=== PATIENT | female | born 1940 | race Caucasian/White ===

== ENCOUNTER 2019-04-17 15:04 | Emergency (ER) | payer MEDICARE, BC ==
[2019-04-17 17:24] LABS: ADD MAN DIFF? NO
[2019-04-17 17:25] LABS: WHITE BLOOD COUNT 8.8 10^3/ul (4.8-10.8)
[2019-04-17 17:25] LABS: BASOPHILS % 0.5 % (0.0-2.0); EOSINOPHILS # 0.1 10^3/ul (0.0-0.5); EOSINOPHILS % 0.9 % (0.0-7.0); HEMATOCRIT 40.8 % (37.0-47.0); HEMOGLOBIN 13.6 g/dl (12.0-16.0); LYMPHOCYTES # 2.1 10^3/ul (0.8-2.9); LYMPHOCYTES % 23.8 % (15.0-51.0); MEAN CORPUSCULAR HEMOGLOBIN 30.4 pg (29.0-33.0); MEAN CORPUSCULAR HGB CONC 33.3 g/dl (32.0-37.0); MEAN CORPUSCULAR VOLUME 91.3 fl (82.0-101.0); MONOCYTE # 0.7 10^3/ul (0.3-0.9); NEUTROPHIL # 5.8 10^3/ul (1.6-7.5); NEUTROPHILS % 66.2 % (39.0-77.0); PLATELET COUNT 217 10^3/UL (140-415); RED BLOOD COUNT 4.47 10^6/ul (4.20-5.40)
[2019-04-17] MEDS: morphine 4 MG/ML VIAL IV (17:31)
[2019-04-17] MEDS: SOD CHLORIDE 0.9% 500 ML IV (17:32)
[2019-04-17] MEDS: ONDANSETRON 4 MG INJ IV (17:32)
[2019-04-17 17:44] LABS: INR 0.88; PT RATIO 0.9
[2019-04-17 17:45] LABS: PARTIAL THROMBOPLASTIN TIME 24.5 Sec (23.0-35.0)
[2019-04-17] MEDS: KETOROLAC 15 MG INJ IV (18:20)
== END 2019-04-18 08:55 | disposition home or self-care (01) ==
LOC: E/R 04-18 08:55
DX: G44.209 Tension-type headache, unspecified, not intractable (principal); R40.2142 Coma scale, eyes open, spontaneous, at arrival to emergency department; R40.2362 Coma scale, best motor response, obeys commands, at arrival to emergency department; R40.2252 Coma scale, best verbal response, oriented, at arrival to emergency department; I10 Essential (primary) hypertension; E03.9 Hypothyroidism, unspecified
CPT/HCPCS: 36415; 70450; 85025; 85610; 85730; 96374; 96375; 99285-25